=== PATIENT | male | born 1955 | race Asian ===

== ENCOUNTER 2024-10-05 08:08 | Emergency (ER) | payer MEDICAID ==
[~2024-10-05] VITALS: Ht 165.1 cm; Wt 59.1 kg
[2024-10-05 08:21] VITALS: TEMP 97.9
[2024-10-05 10:45] VITALS: BP 133/84; PULSE 80; RESP 16; O2SAT 99
[2024-10-05] MEDS ORDERED: RABIES VACCINE, HUMAN DIPLOID/PF 2.5 UNITS/ML VIAL IM. ONE (12:00)
[2024-10-05] MEDS ORDERED: AMOX-457 PO (12:16)
[2024-10-05] MEDS: BACITRACIN 0.9 GM PACKET OINTMENT TP ONE (12:23)
[2024-10-05] MEDS: PERTUSS(ACELL),DIPH,TET/PF 0.5 ML SYRINGE [ADULT] IM. ONE (12:25)
[2024-10-05] MEDS: RABIES IMMUNE GLOBULIN/PF 150 UNITS/ML 10 ML VIAL IM. ONE (12:26)
[2024-10-05] MEDS: RABIES VACCINE (PCEC)/PF 2.5 UNITS/ML SYRINGE IM. ONE (12:28)
[2024-10-05] MEDS: SODIUM CHLORIDE 0.9% 250 ML IRRIG SOLUTION BOTTLE IRRIG ONE (12:51)
== END 2024-10-05 12:45 | disposition home or self-care (01) ==
LOC: EMS 08:12
DX: S61.051A Open bite of right thumb without damage to nail, initial encounter (principal); Z23 Encounter for immunization; W55.01XA Bitten by cat, initial encounter; Y93.89 Activity, other specified; Y92.89 Other specified places as the place of occurrence of the external cause; Y99.8 Other external cause status
CPT/HCPCS: 90375; 90471; 90472; 90675; 90715; 96372; 99284

== ENCOUNTER 2024-10-08 08:12 | Emergency (ER) | payer MEDICAID ==
[~2024-10-08] VITALS: Ht 165.1 cm; Wt 59.0 kg
[~2024-10-08 08:12] MED LIST: AMOX-457 PO
[2024-10-08 08:21] VITALS: BP 148/72; PULSE 91; RESP 18; TEMP 97.8; O2SAT 97
[2024-10-08] MEDS: RABIES VACCINE, HUMAN DIPLOID/PF 2.5 UNITS/ML VIAL IM. ONE (09:12)
== END 2024-10-08 09:55 | disposition home or self-care (01) ==
LOC: EMS 08:12
DX: S61.451A Open bite of right hand, initial encounter (principal); Z20.3 Contact with and (suspected) exposure to rabies; Z23 Encounter for immunization; W55.01XA Bitten by cat, initial encounter; Y93.89 Activity, other specified; Y92.89 Other specified places as the place of occurrence of the external cause; Y99.8 Other external cause status
CPT/HCPCS: 90471; 90675; 99281; 99283

== ENCOUNTER 2024-10-11 08:03 | Emergency (ER) | payer MEDICAID ==
[~2024-10-11] VITALS: Ht 165.1 cm; Wt 62.7 kg
[2024-10-11 08:16] VITALS: TEMP 98.1
[2024-10-11] MEDS: RABIES VACCINE, HUMAN DIPLOID/PF 2.5 UNITS/ML VIAL IM. ONE (08:54)
[2024-10-11 09:06] VITALS: BP 145/78; PULSE 92; RESP 18; O2SAT 98
== END 2024-10-11 09:08 | disposition home or self-care (01) ==
LOC: EMS 08:12
DX: S61.051D Open bite of right thumb without damage to nail, subsequent encounter (principal); Z23 Encounter for immunization; W55.01XD Bitten by cat, subsequent encounter; Z79.899 Other long term (current) drug therapy
CPT/HCPCS: 90471; 90675; 99281; 99283

== ENCOUNTER 2024-10-18 08:07 | Emergency (ER) | payer MEDICAID ==
[~2024-10-18] VITALS: Ht 165.1 cm; Wt 59.1 kg
[2024-10-18 08:14] VITALS: TEMP 98.1
[2024-10-18] MEDS: RABIES VACCINE, HUMAN DIPLOID/PF 2.5 UNITS/ML VIAL IM. ONE (09:29)
[2024-10-18 09:30] VITALS: BP 132/86; PULSE 73; RESP 16; O2SAT 96
== END 2024-10-18 09:45 | disposition home or self-care (01) ==
LOC: EMS 08:08
DX: Z20.3 Contact with and (suspected) exposure to rabies (principal); Z23 Encounter for immunization; I10 Essential (primary) hypertension
CPT/HCPCS: 90471; 90675; 99281